=== PATIENT | male | born 1975 ===

== ENCOUNTER → 2021-02-20 09:55 | Outpatient (CLI) | payer SELFPAY ==
[2021-02-20 10:37] LABS: Alanine Aminotransferase 45 U/L (12-78); Albumin Level 4.3 g/dl (3.5-5.0); Albumin/Globulin Ratio 1.7 (1.1-1.8); Alkaline Phosphatase 70 U/L (38-126); Aspartate Amino Transferase 40 U/L (17-59); Bilirubin,Total 0.7 mg/dl (0.2-1.3); Blood Urea Nitrogen 14 mg/dl (9-20); Calcium 8.8 mg/dl (8.4-10.2); Carbon Dioxide 28 mmol/L (22.0-30.0); Chloride 105 mmol/L (98-107); Chol/HDL Ratio 6.1 (1-3.5); Cholesterol 194 mg/dl (140-200); Estimated Glomerular Filt Rate 123 ml/min (>60); GFR (African American) 148 ML/MIN (>60); Globulin 2.5 g/dL (1.3-3.2); Glucose 104 mg/dl (74-100); HDL Cholesterol 32 mg/dl (40-60); Sodium 140 mmol/L (136-145); Total Protein,Serum 6.8 g/dl (6.3-8.2); Triglycerides 105 mg/dl (30-150); VLDL Cholesterol 21 mg/dL (0-40)
[2021-02-20 10:48] LABS: Direct LDL Cholesterol 134.08 mg/dL (100-129)
== END ==
PROVIDERS: Visit Provider Family Medicine
DX: E78.00 Pure hypercholesterolemia, unspecified (principal)
CPT/HCPCS: 36415; 80053; 80061

== ENCOUNTER → 2021-08-21 08:15 | Outpatient (CLI) | payer SELFPAY ==
[2021-08-21 09:27] LABS: Alanine Aminotransferase 40 U/L (12-78); Albumin Level 4.5 g/dl (3.5-5.0); Albumin/Globulin Ratio 1.6 (1.1-1.8); Alkaline Phosphatase 70 U/L (38-126); Aspartate Amino Transferase 44 U/L (17-59); Bilirubin,Total 0.5 mg/dl (0.2-1.3); Blood Urea Nitrogen 14 mg/dl (9-20); Calcium 9.1 mg/dl (8.4-10.2); Carbon Dioxide 29 mmol/L (22.0-30.0); Chloride 102 mmol/L (98-107); Chol/HDL Ratio 5.5 (1-3.5); Cholesterol 219 mg/dl (140-200); Estimated Glomerular Filt Rate 105 ml/min (>60); GFR (African American) 126 ML/MIN (>60); Globulin 2.8 g/dL (1.3-3.2); Glucose 104 mg/dl (74-100); HDL Cholesterol 40 mg/dl (40-60); Sodium 139 mmol/L (136-145); Total Protein,Serum 7.3 g/dl (6.3-8.2); Triglycerides 129 mg/dl (30-150); VLDL Cholesterol 26 mg/dL (0-40)
[2021-08-21 09:38] LABS: Direct LDL Cholesterol 167.36 mg/dL (100-129)
== END ==
PROVIDERS: Visit Provider Family Medicine
DX: R79.89 Other specified abnormal findings of blood chemistry (principal)
CPT/HCPCS: 36415; 80053; 80061